=== PATIENT | male | born 1940 | race Caucasian/White ===

== ENCOUNTER 2020-10-26 14:15 | Emergency (ER) | payer MEDICARE, OTHER ==
[2020-10-26] MEDS ORDERED: Pantoprazole 40 MG Vial IVPUSH ONE (15:38)
[2020-10-26] MEDS ORDERED: Sodium Chloride 0.9% 10 ML Syringe FLUSH PRN (15:38)
[2020-10-26] MEDS ORDERED: Metoclopramide 10 MG/2 ML SDV IV ONE (15:38)
--- NOTE | 2020-10-26 15:44 | EDM.PDOC ---
ED HPI GENERAL MEDICAL PROBLEM - General Chief Complaint: General Stated Complaint: CANCER PATIENT-IN NEED OF FLUIDS Time Seen by Provider: 10/26/20 15:20 Source of Information: Reports: Patient, Family, RN Notes Reviewed - History of Present Illness INITIAL COMMENTS - FREE TEXT/NARRATIVE: Yasmani presents today for complaints of nausea and vomiting that is not well controlled with current ondansetron, lorazepam and olanzapine. He reports terminal cancer and requests to not have any lab work, radiology interventions or other testing completed today. He denies fever, chills, injury, trauma, wound or signs of infection. He has tried use of medical marijuana with some relief of symptoms but has not used frequently. denies Pain Score (Numeric/FACES): 0 - Related Data Allergies Allergy/AdvReac Type Severity Reaction Status Date / Time oxycodone AdvReac Vomiting Verified 10/26/20 15:02 Home Meds: Home Meds Aspirin/Dipyridamole [Aspirin-Dipyridam ER 25-200 mg] 1 tab PO BID 10/26/20 [History] Gabapentin [Neurontin] 600 mg PO Q8H PRN 10/26/20 [History] LORazepam [Lorazepam] 0.5 mg PO DAILY PRN 10/26/20 [History] Morphine 15 mg PO DAILY PRN 10/26/20 [History] OLANZapine [Olanzapine] 5 mg PO DAILY 10/26/20 [History] Omeprazole 40 mg PO DAILY 10/26/20 [History] Ondansetron [Zofran Odt] 8 mg PO Q8H PRN 10/26/20 [History] atorvaSTATin [Lipitor] 80 mg PO DAILY 10/26/20 [History] traMADol [Ultram] 50 - 100 mg PO Q4H PRN 10/26/20 [History] Past Medical History HEENT History: Reports: Other (See Below) Other HEENT History: wears glasses Cardiovascular History: Reports: Heart Murmur, High Cholesterol, Hypertension Respiratory History: Reports: PE Gastrointestinal History: Reports: GERD Neurological History: Reports: Neuropathy, Peripheral Hematologic History: Reports: Anticoagulation Therapy Immunologic History: Reports: Other (See Below) Other Immunologic History: finished chemotherapy approx 2 months ago Oncologic (Cancer) History: Reports: Prostate, Other (See Below) 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 - Past Surgical History HEENT Surgical History: Reports: Cataract Surgery GI Surgical History: Reports: Hernia, Abdominal Male Surgical History: Reports: Prostatectomy, Other (See Below) Other Male Surgeries/Procedures: prostate CA Musculoskeletal Surgical History: Reports: Shoulder Surgery Social & Family History - Tobacco Use Tobacco Use Status *Q: Never Tobacco User - Caffeine Use Caffeine Use: Reports: Coffee - Recreational Drug Use Recreational Drug Use: No ED ROS GENERAL - Review of Systems Review Of Systems: See Below Constitutional: Reports: No Symptoms, Other (generalized weakness, currently has terminal pancreatic cancer with metastasis, recent paracentesis. ) HEENT: Reports: No Symptoms Respiratory: Reports: No Symptoms Cardiovascular: Reports: No Symptoms Endocrine: Reports: No Symptoms GI/Abdominal: Reports: Anorexia, Diarrhea (intermittent one to two days ago), Distension, Nausea, Vomiting. Denies: Black Stool, Bloody Stool, Constipation, Flatus, Hematemesis, Hematochezia, Melena : Reports: No Symptoms Musculoskeletal: Reports: No Symptoms Skin: Reports: No Symptoms Neurological: Reports: No Symptoms Psychiatric: Reports: No Symptoms Hematologic/Lymphatic: Reports: No Symptoms Immunologic: Reports: No Symptoms ED EXAM, GENERAL - Physical Exam Exam: See Below Exam Limited By: No Limitations General Appearance: Alert, WD/WN, No Apparent Distress Eye Exam: Bilateral Eye: Normal Inspection, PERRL Ears: Normal External Exam, Normal Canal, Hearing Grossly Normal, Normal TMs Nose: Normal Inspection, No Blood, Other (dry ) Throat/Mouth: Normal Lips, Normal Gums, Normal Oropharynx, Normal Voice, No Airway Compromise, Other (dryness noted, no sign of thrush, no erythema, no ulcers) Head: No: Atraumatic, Normocephalic, Facial Tenderness Neck: Normal Inspection, Supple, Non-Tender, Full Range of Motion. No: Lymphadenopathy (R), Lymphadenopathy (L) Respiratory/Chest: No Respiratory Distress, Lungs Clear, Normal Breath Sounds, No Accessory Muscle Use, Chest Non-Tender. No: Crackles, Rales, Rhonchi, Wheezing Cardiovascular: Normal Peripheral Pulses, Regular Rate, Rhythm, No Edema, No Gallop, No Murmur, No Rub Peripheral Pulses: 3+: Radial (L), Radial (R), Dorsalis Pedis (L), Dorsalis Pedis (R) GI/Abdominal: Normal Bowel Sounds, Soft, Non-Tender, No Organomegaly, Distended (soft, palpable without firmness). No: Guarding, Rigid, Rebound, Tender, Mass Back Exam: Normal Inspection, Full Range of Motion. No: CVA Tenderness (R), CVA Tenderness (L), Paraspinal Tenderness, Vertebral Tenderness Extremities: Normal Inspection, Normal Range of Motion, Non-Tender, No Pedal Edema, Normal Capillary Refill Neurological: Alert, Oriented, Normal Cognition, Normal Gait, No Motor/Sensory Deficits Psychiatric: Normal Affect, Normal Mood Skin Exam: Warm, Dry, Intact, Normal Color, No Rash Lymphatic: No Adenopathy Course - Vital Signs Last Recorded V/S: Last Vital Signs Temp 35.6 C L 10/26/20 14:36 Pulse 90 10/26/20 15:37 Resp 18 10/26/20 14:36 BP 113/77 10/26/20 15:37 Pulse Ox 97 10/26/20 15:37 - Orders/Labs/Meds Orders: Active Orders 24 hr Category Date Time Status Saline Lock Insert [OM.PC] Routine Oth 10/26/20 15:38 Ordered Meds: Medications Discontinued Medications Generic Name Dose Route Start Last Admin Trade Name Freq PRN Reason Stop Dose Admin Sodium Chloride 1,000 mls @ 999 mls/hr 10/26/20 15:45 10/26/20 16:01 Normal Saline IV 999 mls/hr ASDIRECTED RORY Administration Sodium Chloride 1,000 mls @ 999 mls/hr 10/26/20 15:45 Normal Saline IV ASDIRECTED RORY Metoclopramide HCl 5 mg 10/26/20 15:38 10/26/20 16:02 Metoclopramide 10 Mg/2 Ml Sdv IV 10/26/20 15:39 5 mg ONETIME ONE Administration Pantoprazole Sodium 40 mg 10/26/20 15:38 10/26/20 16:06 Pantoprazole 40 Mg Vial IVPUSH 10/26/20 15:39 40 mg ONETIME ONE Administration Sodium Chloride 10 ml 10/26/20 15:38 Sodium Chloride 0.9% 10 Ml Syringe FLUSH ASDIRECTED PRN Keep Vein Open - Re-Assessments/Exams Free Text/Narrative Re-Assessment/Exam: 10/26/20 16:57 Patient resting, no emesis at this time. Dr. Teo Og notified of patient status. He advised a paracentesis on ThursdayOctober 30. 10/26/20 17:52 Patient completed applesauce, no nausea or vomiting. He will be discharged to home, pending paracentesis with Dr. Teo Og on ThursdayOctober 30. Nursing will telephone patient Thursday with a time to report for US and procedure - if appropriate. Departure - Departure Time of Disposition: 17:45 Disposition: Home, Self-Care 01 Clinical Impression: Dehydration, Abdominal ascites, Nausea & vomiting - Discharge Information *PRESCRIPTION DRUG MONITORING PROGRAM REVIEWED*: No *COPY OF PRESCRIPTION DRUG MONITORING REPORT IN PATIENT DAVIDA: No Instructions: Dehydration, Adult, [id number] Referrals: PCP,None [Primary Care Provider] - Forms: ED Department Discharge Additional Instructions: You have been evaluated and treated for nausea, vomiting, dehydration. Ongoing abdominal ascites secondary to pancreatic cancer with metastasis. You had Normal Saline 1000ml IV, Metoclopramide 5mg IV (nausea), pantoprazole 40mg IV (for acid reflux). Moving forward it would be best to: Take metoclopramide 5mg by mouth every 8 hours for nausea/vomiting. Do this even if feeling well. Take pantoprazole 40mg by mouth twice a day - start taking this in the morning when you wake up and wait 30 minutes prior to eating, then take 12 hours later in the evening 60 to 90 minutes after eating and prior to bed - this helps with acid reduction and nausea. Stop use of lorazepam - ONLY take this if the nausea and vomiting WILL NOT STOP. Do not take more often then directed. This is a controlled substance and can make you sleepy. Do not drive or operate machinery after taking it. Stop use of omeprazole. You will be taking pantoprazole instead. Continue olanzapine - this helps your brain with nausea and vomiting - prevention. Take your herbal medication as needed. Start with the herbal in the morning and evening. If you have nausea and vomiting during the daytime then start use of herbal in timed intervals. Write down when symptoms start, then time our your dose and take as needed. You may need to take your herbal up to 3 to 5 times a day. Diet: It is best to eat bland and easy to digest foods. Bananas, rice, applesauce and toast. Advance your diet as you tolerate it. You may continue to have diarrhea. Keep yourself hydrated with water and gatorade or powerade. Sometimes it tastes good to mix gatorade or powerade with sprite or 7 up. Abdomen/Ascites: Unfortunately the fluid in your abdomen will continue to collect. You will have pressure to your abdomen which then increases nausea, not wanting to eat. You will need intermittent paracentesis for this. Please return to the [facility] ACU - infusion center on FRIDAY October 30, 2020 . Present to the Emergency room admission desk. You will then have an Ultra sound and Dr. Teo Og will complete paracentesis or advise you on your options. A nurse from [facility] will telephone you on Thursday sometime during business hours to tell you when to come in and register to be seen. You will need to not have anything to eat or drink 8 hours or longer prior to the paracentesis. If you have questions or concerns please return to the emergency room. If you have any worsening, issues or concerns. Your medications were called in to [facility]. Sepsis Event Note (ED) - Evaluation Sepsis Screening Result: No Definite Risk - Focused Exam Vital Signs: Vital Signs Temp Pulse Resp BP Pulse Ox 10/26/20 15:37 90 113/77 97 10/26/20 14:36 35.6 C L 94 18 112/74 96 - My Orders Last 24 Hours: My Active Orders 10/26/20 15:38 Saline Lock Insert [OM.PC] Routine - Assessment/Plan Last 24 Hours: My Active Orders 10/26/20 15:38 Saline Lock Insert [OM.PC] Routine Assessment:: Dehydration, Abdominal ascites, Nausea & vomiting Plan: Patient evaluated and treated for nausea, vomiting, dehydration. Ongoing abdominal ascites secondary to pancreatic cancer with metastasis. He had Normal Saline 1000ml IV, Metoclopramide 5mg IV, pantoprazole 40mg IV with good results. Patient advised to: Take metoclopramide 5mg by mouth every 8 hours for nausea/vomiting. Do this even if feeling well. Take pantoprazole 40mg by mouth twice a day - start taking this in the morning when you wake up and wait 30 minutes prior to eating, then take 12 hours later in the evening 60 to 90 minutes after eating and prior to bed - this helps with acid reduction and nausea (if your insurance does not cover twice a day - the pharmacy may have you take it once a day - this is okay to do). Stop use of lorazepam - ONLY take this if the nausea and vomiting WILL NOT STOP. Do not take more often then directed. This is a controlled substance and can make you sleepy. Do not drive or operate machinery after taking it. Stop use of omeprazole. Continue olanzapine - this helps the brain with nausea and vomiting - prevention. Education provided on tardive dyskinesia, patient and verbalized understanding. Take herbal medication as needed. Start with the herbal in the morning and evening. If nausea and vomiting during the daytime then start use of herbal in timed intervals. Write down when symptoms start, then time dose and take as needed. He may need to take herbal up to 3 to 5 times a day. Diet: It is best to eat bland and easy to digest foods. Bananas, rice, applesauce and toast. Advance diet as tolerated. Patient may continue to have diarrhea. Keep hydrated with water and gatorade or powerade. Sometimes it tastes good to mix gatorade or powerade with sprite or 7-up. Abdomen/Ascites: Unfortunately the fluid in the abdomen will continue to collect. He will have pressure to the abdomen which then increases nausea, not wanting to eat. He will need intermittent paracentesis for this. Please return to the [facility] ACU - infusion center on FRIDAY October 30, 2020. Present to the Emergency room admission desk. He will then have an Ultra sound and Dr. Teo Og will complete paracentesis or advise patient on his options. A nurse from [facility] will telephone patient on Thursday sometime during business hours to tell him when to come in and register to be seen. He will need to not have anything to eat or drink 8 hours or longer prior to the paracentesis. If he has questions or concerns please return to the emergency room. If there is any worsening, issues or concerns. Medications (metoclopramide and pantoprazole) were called in to [facility].
[2020-10-26] MEDS ORDERED: Sodium Chloride 0.9% 1,000 ML IV SCH ×2 (15:45)
== END 2020-10-26 18:16 | disposition home or self-care (01) ==
LOC: JP.ED 14:15
DX: E86.0 Dehydration (principal); R18.8 Other ascites; R11.2 Nausea with vomiting, unspecified; I10 Essential (primary) hypertension; E78.00 Pure hypercholesterolemia, unspecified; K21.9 Gastro-esophageal reflux disease without esophagitis; Z86.711 Personal history of pulmonary embolism; Z79.01 Long term (current) use of anticoagulants; Z88.5 Allergy status to narcotic agent; Z79.899 Other long term (current) drug therapy
CPT/HCPCS: 96374; 96375; 99283; C9113; J2765; J7030